=== PATIENT | female | born 1990 | race African-American/Black ===

== ENCOUNTER 2016-12-12 10:37 | Inpatient (IN) | payer OTHER ==
--- NOTE | ~2016-12-12 | HP ---
Unit #: [id number] #: [id number] Patient: SOCRORO TOM [id number] [place] [address] [id number] I MR#: [id number] NAME: SOCORRO TOM ROOM: P254 Age: 26 Sex: F Admission Date: 12/12/2016 : 1990 Attending Physician: Jam Palacios M.D. Admitting Physician: Jam Palacios M.D. Primary Care Physician: Primary Care Physician No HISTORY AND PHYSICAL HISTORY OF PRESENT ILLNESS Socorro is a 26 year old admitted to [address] [place] [address] with depression and after verbalizing wanting to hurt herself. She allegedly wrote a suicide note. PAST MEDICAL HISTORY Asthma. PAST SURGICAL HISTORY Right shoulder. ALLERGIES Penicillin, clindamycin. SOCIAL HISTORY She does not smoke. Drinks alcohol on occasion. Denies illicit drug use. FAMILY HISTORY Medically noncontributory. REVIEW OF SYSTEMS CONSTITUTIONAL: No fever or chills. HEENT: Denies any sore throat, ear pain or runny nose. CARDIOVASCULAR: Denies chest pain, irregular heart rhythm or palpitations. CHEST: Denies shortness of breath or cough. No hemoptysis. GASTROINTESTINAL: Denies nausea, vomiting, diarrhea or chronic constipation. ENDOCRINE: Denies history of increased thirst or urination. No recent significant weight loss or gain. GENITOURINARY: Denies dysuria, frequency, or hematuria. SKIN: Denies any rashes. HEMATOLOGIC: Denies history of increased bleeding or bruising. MUSCULOSKELETAL: Denies any hot, swollen joints. No generalized muscle pain. NEUROLOGIC: Denies problems with vision or speech. No frequent, severe headaches. No numbness, tingling or weakness in any extremities. Denies loss of bladder or bowel control. CURRENT MEDICATIONS 1. Desyrel 50 mg q.h.s. 2. Milk of Magnesia p.r.n. 3. Maalox p.r.n. 4. Tylenol p.r.n. 5. Proventil inhaler p.r.n. Unit #: [id number] #: [id number] Patient: SOCORRO TOM PHYSICAL EXAMINATION GENERAL: Alert, well-nourished, in no apparent distress. VITAL SIGNS: Blood pressure 103/60, heart rate 80, respirations 16, temperature 98.6. WEIGHT: 145 pounds. HEIGHT: 5'6". SKIN: Warm and dry without rash or lesion. HEENT: Normocephalic. TMs not viewed. Oral and nasal passages clear. Conjunctivae clear. Pupils equal, round and reactive to light and accommodation. Extraocular movements intact. NECK: Supple without lymphadenopathy or thyromegaly. HEART: Regular rate and rhythm without murmur. LUNGS: Clear. ABDOMEN: Soft, nontender. : Not done. EXTREMITIES: No evidence of cyanosis, clubbing or edema. Moves all extremities without focal deficit. NEUROLOGICAL: Grossly within normal limits. Cranial Nerves: II: Visual velasco are intact. III, IV AND : Extraocular movements are intact. Pupils are equal, round and reactive to light. V: Facial sensation is grossly normal. VII: Facial movements and expression are normal. VIII: Auditory acuity grossly intact. IX, X: Uvula is midline. Phonation is normal. XI: Patient shrugs shoulders and turns head normally. XII: Tongue protrudes in the midline. Sensory and Motor Function: Sensory and motor sensation is grossly normal. Motor: moves all extremities well. Coordination: Gait is normal. Deep Tendon Reflexes: Intact. IMPRESSION Psychiatric admission RECOMMENDATIONS PSYCHIATRIC: Per psychiatrist. MEDICAL: I see no contraindications to participating in facility's activities. MEDICAL PROGNOSIS Good. MEDICAL CONDITION Stable. Dictated by... Isidra Pavon P.A.-C. for Delmy Marley/zehra TD: 12/12/2016 20:21 JOB #: [id number] Unit #: [id number] #: [id number] Patient: SOCORRO TOM HISTORY AND PHYSICAL X Isidra Pavon HISTORY AND PHYSICAL
--- NOTE | ~2016-12-12 | DS ---
Unit #: [id number] #: [id number] Patient: SOCORRO TOM [id number] [facility] [address] [place] [address] [id number] I MR#: [id number] NAME: SOCORRO TOM ROOM: P254 Age: 26 Sex: F Admission Date: 12/12/2016 : 1990 Discharge Date: 12/14/2016 Attending Physician: Jam Palacios M.D. Primary Care Physician: Primary Care Physician No DISCHARGE SUMMARY REASON FOR ADMISSION Socorro is a 26-year-old woman with a history of bipolar disorder who has been off her medications and out of compliance with followup for some time. She reports she became increasingly depressed, hopeless and helpless, and had suicidal ideation with a plan to overdose. She could not contract for safety and was admitted for stabilization. DIAGNOSTIC STUDIES LABORATORY RESULTS: Please see hospital chart. HOSPITAL COURSE The patient was admitted and placed on suicide precautions. Depakote and Risperdal were restarted with the addition of trazodone for insomnia, which was effective. We declined initiation of p.r.n. medication for ADD to an outpatient doctor. She rapidly improved and denied further suicidal ideation, intent, or plan after admission. She participated appropriately in groups and activities, and gained increasing insight into her psychological issues. On the date of discharge, she was able to contract for safety. DISCHARGE DIAGNOSES AXIS I: Bipolar depressed. AXIS II: No diagnosis. AXIS III: Asthma. AXIS IV: AXIS V: DISCHARGE INSTRUCTIONS Follow up with [facility]. MEDICATIONS Depakote 500 mg b.i.d. for mood stability, Risperdal 1 mg at bedtime for psychosis, and trazodone 50 mg at bedtime for insomnia. CONDITION AT DISCHARGE Improved. PROGNOSIS Good. DIET AND ACTIVITY Per primary care doctor. Unit #: [id number] #: [id number] Patient: SOCORRO TOM Dictated by... Delmy LowH/lelo TD: 12/15/2016 01:09 JOB #: [id number] DISCHARGE SUMMARY Page 1 of 1 X Jam Palacios MD DISCHARGE SUMMARY
--- NOTE | ~2016-12-12 | PA ---
Unit #: [id number] #: [id number] Patient: SOCORRO TOM [id number] [place] [address] [id number] I MR#: [id number] NAME: SOCORRO TOM ROOM: P254 Age: 26 Sex: F Admission Date: 12/12/2016 : 1990 Date of Assessment: 12/13/2016 Attending Physician: Jam Palacios M.D. Admitting Physician: Jam Palacios M.D. Primary Care Physician: Primary Care Physician No PSYCHIATRIC ASSESSMENT DATE OF SERVICE 12/13/2016. INFORMANTS The patient, reliable; [facility], reliable; and [facility], reliable. CHIEF COMPLAINT Suicide attempt. HISTORY OF PRESENT ILLNESS Ms. Ballard is a 26-year-old woman with a history of bipolar disorder who reports she was previously on Depakote and Risperdal, but has been noncompliant with medications. She reports increasing hopelessness and helplessness, and feeling like she is unable to parent her 5-year-old child. She sent notes to friends saying goodbye and took an overdose of medications, and was initially cleared at [facility], before being placed on a 72-hour hold and transferred to [facility] for inpatient psychiatric care. PAST PSYCHIATRIC HISTORY The patient reports she is currently a client at [facility]. She has one previous admission to this facility in 10/2015 as well as previous hospitalizations at [facility] and [facility]. FAMILY PSYCHIATRIC HISTORY The patient's biological mother suffered from an unspecified mental illness. SOCIAL HISTORY The patient denied history of childhood abuse or neglect. She is a single heterosexual woman with a 5-year-old son. She has erratic employment and is worried about her housing and finances right now. PAST MEDICAL HISTORY The patient has a history of asthma. MEDICATIONS Albuterol inhaler p.r.n. for shortness of air. ALLERGIES Penicillin and clindamycin. Unit #: [id number] #: [id number] Patient: SOCORRO TOM SUBSTANCE USE HISTORY There is no previous history of chemical dependence or abuse. MENTAL STATUS EXAMINATION Socorro presented as a neatly dressed and groomed woman, who appeared her stated age. She was polite and cooperative with the examination. Vital signs were temperature 98.6, pulse 64, respirations 15, blood pressure 111/70. Her speech was spontaneous and easily understood. Her musculoskeletal examination was calm. Her mood was dysphoric with a congruent affect. She was alert and fully oriented. Her memory and concentration were intact. Her thought processes were goal directed with no evidence of psychosis. She did report ongoing suicidal ideation and could not contract for safety outside of the hospital. Insight and judgment, fair. Fund of knowledge and abstraction, fair. ASSETS AND LIABILITIES The patient is familiar with local resources and presents voluntarily for treatment. Liabilities include recent noncompliance with medication, increasing financial and social stress. ADMITTING DIAGNOSES AXIS I: Bipolar disorder, most recent episode, depressed, F31.4. AXIS II: No diagnosis. AXIS III: History of asthma. AXIS IV: AXIS V: PSYCHIATRIC PLAN The patient was admitted and placed on suicide precautions. We will restart Depakote 500 mg b.i.d. and Risperdal 1 mg at bedtime for mood stability. She will enroll in dual diagnosis groups and activities, and physical examination and laboratory studies will be ordered and reviewed. Treatment goals are resolution of SI, improvement in insight, and improvement in coping skills. DISCHARGE PLAN Follow up with the [facility] long-term psychiatric care. ESTIMATED LENGTH OF STAY 5 days. Dictated by... Jam Palacios M.D. DORA/lelo TD: 12/14/2016 02:31 JOB #: [id number] Unit #: [id number] #: [id number] Patient: SOCORRO TOM PSYCHIATRIC ASSESSMENT Page 1 of 1 X Jam Palacios MD X PSYCHIATRIC ASSESSMENT
== END 2016-12-14 14:15 | disposition home or self-care (01) | DRG 885 ==
LOC: POF 10:37 → P2L 11:15
DX: F31.4 Bipolar disorder, current episode depressed, severe, without psychotic features (principal); R45.851 Suicidal ideations; J45.909 Unspecified asthma, uncomplicated; Z88.1 Allergy status to other antibiotic agents; Z88.0 Allergy status to penicillin